=== PATIENT | female | born 1960 | race Asian ===

== ENCOUNTER 2021-05-16 21:36 | Emergency (ER) | payer SELFPAY ==
[~2021-05-16] VITALS: Ht 149.9 cm; Wt 75.0 kg
[~2021-05-16 21:36] MED LIST: NOCURR
[2021-05-16 21:37] VITALS: BP 158/117
== END 2021-05-16 22:14 | disposition left against medical advice (07) ==
LOC: EMS 21:39
DX: R11.2 Nausea with vomiting, unspecified (principal); Z53.21 Procedure and treatment not carried out due to patient leaving prior to being seen by health care provider
CPT/HCPCS: 93005

== ENCOUNTER 2025-03-17 13:42 | Emergency (ER) | payer OTHER ==
[~2025-03-17] VITALS: Ht 162.6 cm; Wt 89.0 kg
[2025-03-17] MEDS ORDERED: FEBU40T PO ×2 (13:49→14:27)
[2025-03-17 13:50] VITALS: TEMP 99
[2025-03-17 14:26] VITALS: BP 136/74; PULSE 78; RESP 17; O2SAT 97
== END 2025-03-17 14:39 | disposition home or self-care (01) ==
LOC: EMS 13:42
DX: M10.9 Gout, unspecified (principal); M79.674 Pain in right toe(s); Z76.0 Encounter for issue of repeat prescription; Z79.899 Other long term (current) drug therapy
CPT/HCPCS: 99282; Z7502